=== PATIENT | female | born 1950 | race African-American/Black ===

== ENCOUNTER 2021-10-13 02:53 | Inpatient (IN) | payer OTHER ==
[~2021-10-13] VITALS: Ht 152.4 cm; Wt 77.2 kg
--- NOTE | ~2021-10-13 | EMS ---
[facility] [address] [place] [address] EMS Patient Care Report Name: NADER STODDARD Room #: 438-P [facility] IN M.R.#: [id number] Admission: 10/13/21 Attend Phys: Kelechi Jim MD Discharge: 10/17/21 Date of : 50 Report #: [id number] THIS REPORT FOR: //name// Report Transmitted: 10/28/2021 13:49 EMS Care Summary [place], [place]/[facility] Incident [id number] @ 10/13/2021 02:18 Incident Location [address] [place] [address] Patient NADER STODDARD Female, 71 Years [id number] Patient Address Patient History Seizures, Patient Medications Oxybutynin, ASA, Clopidogrel, Chief Complaint Constipation Disposition Transported No Lights/[place] Dispatch Reason Sick Person Transported To [facility] Narrative M42 arrived on scene to find the patient sitting upright on the stool. Patient said she had been constipated for the past 2-3 days. Patient said she had been possibly running a fever, cough, and having nausea plus vomiting for the past several days as well. Patient denied being around anyone with covid-19. Patient was moved to the cot and secured with seat belts. Patient denied shortness of breath or chest pain. Patient was having some nausea with vomiting during transport. En route to the hospital no changes in the patient condition occurred. M42 arrived on scene of the hospital and patient care was transferred [facility] [address] [place] [address] EMS Patient Care Report Name: NADER STODDARD Room #: 438-P [facility] IN M.R.#: [id number] Admission: 10/13/21 Attend Phys: Kelechi Jim MD Discharge: 10/17/21 Date of : 50 Report #: [id number] to the RN. Initial Vitals @02:37P: 88,R: 16,BP: 143/87,Pain: 0/10,GCS: 15,CO: 0,SpO2: 99,Revised Trauma: 12, @02:38P: 123,R: 16,BP: 132/77,Pain: 0/10,GCS: 15,SpO2: 99,Revised Trauma: 12, Assessments @02:27MENTAL:No Abnormalities,SKIN:No Abnormalities,HEENT:Head/Face: No Abnormalities,Eyes: No Abnormalities,Neck/Airway: No Abnormalities,LUNG SOUNDS:General: Vomiting,General: Nausea,Left Upper: No Abnormalities,Right Upper: No Abnormalities,Left Lower: No Abnormalities,Right Lower: No Abnormalities,ABDOMEN:General: Vomiting,General: Nausea,Left Upper: No Abnormalities,Right Upper: No Abnormalities,Left Lower: No Abnormalities,Right Lower: No Abnormalities,PELVIS//GI:No Abnormalities,EXTREMITIES:Left Arm: No Abnormalities,Right Arm: No Abnormalities,Left Leg: No Abnormalities,Right Leg: No Abnormalities,PULSE:NEURO:No Abnormalities,@02:39MENTAL:No Abnormalities,SKIN:No Abnormalities,HEENT:Head/Face: No Abnormalities,Eyes: No Abnormalities,Neck/Airway: No Abnormalities,LUNG SOUNDS:General: Nausea,General: Vomiting,Right Upper: No Abnormalities,Left Lower: No Abnormalities,Right Lower: No Abnormalities,ABDOMEN:General: Nausea,General: Vomiting,Right Upper: No Abnormalities,Left Lower: No Abnormalities,Right Lower: No Abnormalities,PELVIS//GI:No Abnormalities,EXTREMITIES:Left Arm: No Abnormalities,Right Arm: No Abnormalities,Left Leg: No Abnormalities,Right Leg: No Abnormalities,PULSE:NEURO:No Abnormalities, Impression Constipation Procedures @02:27 ALS Assessment Response: UnchangedSucceeded Timeline 02:17,Call Received 02:17,Dispatch Notified 02:18,Dispatched 02:19,En Route 02:25,On Scene 02:27,At Patient 02:27,ALS Assessment,Response: UnchangedSucceeded, 02:37,BP: 143/87 M,PULSE: 88,RR: 16 R,SPO2: 99 Ox,ETCO2: ,BG: ,PAIN: 0,GCS: 15, 02:38,BP: 132/77 M,PULSE: 123,RR: 16 R,SPO2: 99 Ox,ETCO2: ,BG: ,PAIN: 0,GCS: 15, 02:38,Depart Scene 02:56,At Destination [address] [address] EMS Patient Care Report Name: NADER STODDARD Room #: 438-P [facility] IN M.R.#: [id number] Admission: 10/13/21 Attend Phys: Kelechi Jim MD Discharge: 10/17/21 Date of : 50 Report #: [id number] 03:02,Call Closed Disclaimer v1.1 Copyright 2020 [employer] This EMS Care Summary contains data elements from the applicable legal record (which may be displayed differently). It is designed to provide pertinent information for the following purposes: continuity of care, clinical quality, and state data reporting. The complete legal record is available to ED staff and administrators of the receiving hospital in [employer]'s Patient Tracker. All data is provided "as is."
[2021-10-13 02:54] VITALS: BP 166/69
[2021-10-13] MEDS ORDERED: FLOMAX0.4 MG PO (03:11)
[2021-10-13] MEDS ORDERED: LEVO-T25 MCG PO (03:13)
[2021-10-13] MEDS ORDERED: SODIUM BICARBO650 M3 PO (03:13)
[2021-10-13] MEDS ORDERED: VAZALORE81 MG PO (03:13)
[2021-10-13] MEDS ORDERED: OXYBUTYNIN 5 MG5 M2 PO (03:14)
[2021-10-13] MEDS ORDERED: METFORMIN HCL500 M3 PO (03:14)
[2021-10-13] MEDS ORDERED: SERTRALINE HCL100 MG PO (03:15)
[2021-10-13] MEDS ORDERED: PLAVIX 75 MG TA75 MG PO (03:15)
[2021-10-13] MEDS ORDERED: LISINOPRIL20 MG PO (03:16)
[2021-10-13] MEDS ORDERED: CALCITRIOL0.25 MCG PO (03:17)
[2021-10-13 03:54] LABS: ABSOLUTE NEUTROPHILS 7.1 thou/uL (1.4-8.2); BASOPHILS 0.2 % (0.0-2.0); EOSINOPHILS 0.5 % (0.0-3.0); HEMATOCRIT 34.5 % (37.0-47.0); HEMOGLOBIN 11.2 gm/dL (12.0-15.0); MCH 28.9 pg (26.0-34.0); MCHC 32.4 g/dL (28.0-37.0); MCV 89.4 fL (80.0-100.0); MONOCYTES 2.1 % (1.0-8.0); PLATELET COUNT 263 thou/uL (150-400); POLYS 76.2 % (36.0-66.0); RBC 3.86 mil/uL (4.20-5.00); RDW 16.3 % (10.5-14.5); WBC 9.3 thou/uL (4.0-11.0)
[2021-10-13 04:03] LABS: CREATININE 2.3 mg/dL (0.6-1.0); POTASSIUM 4.3 mmol/L (3.5-5.1)
[2021-10-13 04:08] LABS: ALBUMIN 3.5 g/dL (3.4-5.0); TOTAL BILIRUBIN 0.4 mg/dL (0.2-1.0); TOTAL PROTEIN 7.4 g/dL (6.4-8.2)
[2021-10-13 05:44] LABS: URINE BILIRUBIN NEGATIVE (Negative); URINE BLOOD NEGATIVE (Negative); URINE CLARITY SL CLOUDY; URINE COLOR YELLOW; URINE GLUCOSE-RANDOM* NEGATIVE (Negative); URINE KETONES NEGATIVE (Negative); URINE LEUKOCYTES-REFLEX NEGATIVE (Negative); URINE NITRITE-REFLEX NEGATIVE (Negative); URINE PROTEIN (DIPSTICK) TRACE (Negative); URINE UROBILINOGEN 0.2 E.U./dl (0.2-1.0)
[2021-10-13 09:25] LABS: FOLIC ACID 11.3 ng/mL (8.6-58.9)
--- NOTE | 2021-10-13 13:30 | NUR ---
GAVE PATIENT A RECTAL ENEMA. PATIENT TOLERATED IT WELL.
[2021-10-13 19:09] VITALS: BP 155/50
[2021-10-13 20:02] VITALS: BP 165/86
[2021-10-14 00:06] LABS: GLYCOHEMOGLOBIN (HGB A1C) 7.6 % (4.8-5.6)
--- NOTE | 2021-10-14 02:09 | NUR ---
ADMITED TO ROOM 438 AROUND 1800 OF 10/13. CARE ASSUMED AT 1930. PATIENT IS RECEIVED IN BED, DROWSY AND A&O TO PERSON AND SITUATION. REORIENTED TO TIME AND PLACE. PATIENT IS ALSO ORIENTED TO ROOM AND UNIT. ADMISSION PACKET PROVIDED, BUT CONSENTS HAVE NOT BEEN SIGNED DUE TO VISION ISSUES. LEFT HAND PERIPHERAL IV HAS NO S/S OF INFECTION OR INFILTRATION. NS RUNNING AT 100CC/HR. VALDEZ IN PLACE, DRAINNING YELLOW URINE. PATIENT DENIED PAIN AT ASSESSMENT. HYPOACTIVE BOWEL SOUNDS PRESENT IN ALL 4Q, DENIES NAUSEA. GOLYTELY AT BEDSIDE, AND INTAKE IS ENCOURAGED. PATIENT TOLERATED ORAL MEDS WHOLE WITH THIN LIQUIDS. PATIENT HAS BEEN IMPULSIVE AND CONFUSED INTERMITTENTLY. BED ALARM ON, FALL PRECAUTIONS IN PLACE. CALL LIGHT WITHIN REACH, WILL CONTINUE TO MONITOR.
[2021-10-14 03:43] VITALS: BP 156/59
[2021-10-14 05:39] LABS: ABSOLUTE NEUTROPHILS 9.3 thou/uL (1.4-8.2); BASOPHILS 0.1 % (0.0-2.0); HEMATOCRIT 28.5 % (37.0-47.0); HEMOGLOBIN 9.5 gm/dL (12.0-15.0); LYMPHOCYTES 7.5 % (24.0-44.0); MCH 29.4 pg (26.0-34.0); MCHC 33.5 g/dL (28.0-37.0); MCV 87.7 fL (80.0-100.0); MONOCYTES 6.8 % (1.0-8.0); PLATELET COUNT 217 thou/uL (150-400); POLYS 85.6 % (36.0-66.0); RBC 3.25 mil/uL (4.20-5.00); WBC 10.8 thou/uL (4.0-11.0)
[2021-10-14 06:18] LABS: CALCIUM 7.9 mg/dL (8.5-10.1); CREATININE 1.7 mg/dL (0.6-1.0); MAGNESIUM 1.7 mg/dL (1.8-2.4); POTASSIUM 3.7 mmol/L (3.5-5.1)
[2021-10-14 07:36] VITALS: BP 149/76
--- NOTE | 2021-10-14 13:28 | NUR ---
ASSUMED PT CARE THIS AM. GIVEN GOLYTELY AND LACTULOSE PER DR AND IT TELECOM TECHNICIAN ORDERED. INFORMED PT IS HAVING LOOSE, LIQUID STOOLS. CHANGED WHOLE BED MULTIPLE TIMES. NO C/O OF PAIN PER PT. PT HAS TELE MONITOR ON. PT IS ACCUCHECK ACHS AND HAS VALDEZ CATH IN PLACE. PHYSICAL THERAPY AND OCCUPATIONAL THERAPY WAS WORKING WITH PT THIS AM. PER PT SHE SAID SHE IS A WHEELCHAIR BOUND. WILL CONTINUE TO MONITOR PT. FOLLOW POC.
--- NOTE | 2021-10-14 14:36 | NUR ---
71-year-old female with past medical history known for CVA, hypertension, hypothyroidism, diabetes, hyperlipidemia. [facility] ED with abdominal pain. Patient also reports constipation, nausea, vomiting however she had liquid stool prior to coming to the hospital. ER work-up revealed CT abdomen revealed severe constipation with severe rectal impaction, rectum is markedly distended . Going for KUB today Chart review. Cm visited with Sera, A & o x 3, and able to make her needs know. Intro to cm and dcp. She lives at home with her son deangelo # [phone]. 10 steps to the basement with handrails. Independent, no longer drives. Deangelo will drive her to appointments and run errands if needed. She has a walker that she uses. Has not had any home health since she moved here from [place]. Discussed during los with the attending physician, dc home when she has bm. Possible today or dc home over the weekend. Deangelo will be able to transport her home per Sera. Will cont. following as if needs arise.
[2021-10-14 16:20] VITALS: BP 151/64
[2021-10-14 19:20] VITALS: BP 135/47
[2021-10-14 19:30] VITALS: BP 135/47
--- NOTE | 2021-10-15 04:31 | NUR ---
ASSUMED CARE AT 1900, PT SEATED ON THE RECLINER, TEQUESTED TO BE ASSISTED IN BED, CALL LIGHT AND BELONGINGS IN CLOSE PROXIMITY, COMPLIANT TO TX, NO ADVERSE REACTION, IV ESTABLISHED ON THE LEFT WRIST, PT TOLARETED THE PROCEDURE WELL, PT CONTINUES WITH BOWEL REGIME, EFFECTIVE, HAD MULTIPLE MODERATE LOOSE STOOLS, SLEPT INTERMITTENTLY WITH CHECK, CHANGING AND TOILETING NEEDED COMPLETED.
[2021-10-15 04:38] VITALS: BP 143/74
[2021-10-15 08:23] VITALS: BP 152/74
--- NOTE | 2021-10-15 09:45 | NUR ---
ASSUMED CARE AT 0700. PATIENT IS ALERT AND ORIENTED X2, WITH SOME CONFUSION. PATIENT IS BLIND. LUNGS ARE CLEAR AND DEMINISHED. PATIENT HAS IV IN HER LEFT WRIST. NS INFUSING AT 80 CC/HR. IV SITE WITHOUT REDNESS OR SWELLING. PATIENT IS UP WITH ASSIST OF 1 STAFF AND GAIT BELT TO [facility]. PATIENT HAS VALDEZ TO DD, DRAINING ADI COLORED URINE. PATIENT CONTINUES ON BOWEL PREP, MIRALAX IN H20. FALL AND SAFETY PROTOCOLS IN PLACE. DENIES PAIN AT THIS TIME. CONTINUES TO PROGRESS SLOWLY TOWARDS D/C GOALS. WILL CONTINUE TO MONITER.
[2021-10-15 15:45] VITALS: BP 150/66
[2021-10-15 20:53] VITALS: BP 133/47
--- NOTE | 2021-10-16 04:34 | NUR ---
ASSUMED CARE AT 1900, PT LAYING COMFORTABLY IN BED WITH CALL LIGHT AND PERSONAL BELONGINGS WITHIN REACH, REPORTS NO PAIN OR DISCOMFORT, TALARATED TX WELL NO ADVERSE REACTION NOTED, ICE WATER ON BED SIDE TABLE, SLEPT THROUGH THE NIGHT, WILL CONTINUE TO MONITOR.
[2021-10-16 07:31] VITALS: BP 140/41
[2021-10-16 15:42] VITALS: BP 156/49
--- NOTE | 2021-10-16 16:40 | NUR ---
PT PROGRESSING TOWARD GOALS. NO C/O ABD PAIN. LIQUID STOOL COVERING BOTTOM OF COMMODE. EATING AND DRINKING W/O C/O DISCOMFORT AND IS PASSING FLATUS. UP IN THE CHAIR FOR SEVERAL HOURS.
[2021-10-16 20:40] VITALS: BP 172/55
[2021-10-17 04:15] VITALS: BP 157/59
--- NOTE | 2021-10-17 04:57 | NUR ---
PT LYING IN BED. DENIES PAIN. DENIES NAUSEA. RESTING COMFORTABLY. NO NEEDS VOICED. CALL LIGHT WITHIN REACH. FREQUENT OBSERVATION.
[2021-10-17 05:23] LABS: HEMATOCRIT 26.9 % (37.0-47.0); HEMOGLOBIN 8.9 gm/dL (12.0-15.0); MCHC 33.2 g/dL (28.0-37.0); MCV 87.3 fL (80.0-100.0); RBC 3.08 mil/uL (4.20-5.00); RDW 15.7 % (10.5-14.5); WBC 6.5 thou/uL (4.0-11.0)
[2021-10-17 05:26] LABS: CALCIUM 7.5 mg/dL (8.5-10.1); CREATININE 1.4 mg/dL (0.6-1.0); POTASSIUM 3.2 mmol/L (3.5-5.1)
--- NOTE | 2021-10-17 08:44 | NUR ---
A/O X 4. ROOM AIR. ONE ASSIST WITH WALKER. BILATERAL EYES ARE BLIND BUT SEES SHADOWS. LEDT WRIST IV SALINE LOCKED. AC HS ACCU CHECKS, 155 AT BREAKFAST, 3 UNITS LISPRO GIVEN SUBQ LLQ. SR ON TELE. VALDEZ IN PLACE-YELLOW URINE. INCONT ON STOOL- LOOSE STOOLS. HEPARIN DVT PPX. NO PAIN.
--- NOTE | 2021-10-17 11:13 | NUR ---
Discussed during los with the attending physician. Dc home today with home health. Mohinder visited with Sera, Education on home health and referral sent to [facility] per Srea request. Tried to reach her son david, is not a working number.
[2021-10-17 11:15] VITALS: BP 157/59
[2021-10-17] MEDS ORDERED: MIRALAX119 GM PO (14:07)
== END 2021-10-17 14:51 | disposition home health service (06) | DRG 388 ==
LOC: ER 02:53 → EROBS 06:26 → 4S 06:26
PROVIDERS: Emergency Medicine; Nurse Practitioner; ADMIT Hospitalist; ATTEND Hospitalist
DX: K56.41 Fecal impaction (principal); N17.0 Acute kidney failure with tubular necrosis; N18.9 Chronic kidney disease, unspecified; Z20.822 Contact with and (suspected) exposure to COVID-19; E03.9 Hypothyroidism, unspecified; E78.5 Hyperlipidemia, unspecified; E11.65 Type 2 diabetes mellitus with hyperglycemia; E86.0 Dehydration; R53.81 Other malaise; R63.4 Abnormal weight loss; E11.22 Type 2 diabetes mellitus with diabetic chronic kidney disease; I12.9 Hypertensive chronic kidney disease with stage 1 through stage 4 chronic kidney disease, or unspecified chronic kidney disease; R33.9 Retention of urine, unspecified; Z86.73 Personal history of transient ischemic attack (TIA), and cerebral infarction without residual deficits; Z68.33 Body mass index [BMI] 33.0-33.9, adult; Z79.82 Long term (current) use of aspirin; Z79.899 Other long term (current) drug therapy; Z28.21 Immunization not carried out because of patient refusal
CPT/HCPCS: 10100

== ENCOUNTER 2021-11-25 20:08 | Inpatient (IN) | payer MEDICARE ==
[~2021-11-25] VITALS: Ht 167.6 cm; Wt 71.4 kg
--- NOTE | ~2021-11-25 | EMS ---
[address] [address] EMS Patient Care Report Name: NADER STODDARD Room #: 438-P [facility] IN M.R.#: [id number] Admission: 11/25/21 Attend Phys: Wendy Shaffer MD Discharge: 11/28/21 Date of : 50 Report #: [id number] THIS REPORT FOR: //name// Report Transmitted: 11/29/2021 10:29 EMS Care Summary [place], [place]/[facility] Incident [id number] @ 11/25/2021 19:29 Incident Location [address] [place] [address] Patient NADER STODDARD Female, 71 Years 1950 Patient Address [address] [place] [address] Patient History Seizures, Patient Allergies No known allergies, Patient Medications Clopidogrel, ASA, Oxybutynin, Chief Complaint ABDOMINAL PAIN Disposition Transported No Lights/[place] Dispatch Reason Abdominal Pain/Problems Transported To [facility] Narrative M528 ARRIVES TO FIND 71 Y/O F PT COMPLAINING OF ABDOMINAL PAIN AND WEAKNESS FOR THE LAST FOUR DAYS. ASSESSMENTS AND TREATMENTS NOTED. PT MOVED TO COT VIA [id number]. PT MOVED TO AMBULANCE. PT TRANSPORTED. [address] [address] EMS Patient Care Report Name: NADER STODDARD Room #: 438-P [facility] IN M.R.#: [id number] Admission: 11/25/21 Attend Phys: Wendy Shaffer MD Discharge: 11/28/21 Date of : 50 Report #: [id number] M528 ARRIVES AT DESTINATION. PT MOVED TO ROOM IN ED. PT MOVED TO BED IN ROOM VIA DRAWSHEET METHOD. PT CARE TRANSFERRED. M528 RETURNS TO SERVICE. Initial Vitals @19:53P: 77,BP: 87/48,SpO2: 99, @19:44P: 84,R: 18,BP: 110/68,Pain: 8/10,GCS: 15,Glucose: 108,SpO2: 99,Revised Trauma: 12, Assessments @19:38MENTAL:Event Oriented,Time Oriented,Person Oriented,Place Oriented,SKIN:HEENT:LUNG SOUNDS:Right Lower: Tenderness,Left Lower: Tenderness,ABDOMEN:Right Lower: Tenderness,Left Lower: Tenderness,PELVIS//GI:EXTREMITIES:PULSE:NEURO:@19:48MENTAL:No Abnormalities,SKIN:No Abnormalities,HEENT:Head/Face: No Abnormalities,Eyes: No Abnormalities,Neck/Airway: No Abnormalities,LUNG SOUNDS:Right Lower: Tenderness,Left Lower: Tenderness,General: No Abnormalities,Left Upper: No Abnormalities,Right Upper: No Abnormalities,ABDOMEN:Right Lower: Tenderness,Left Lower: Tenderness,General: No Abnormalities,Left Upper: No Abnormalities,Right Upper: No Abnormalities,PELVIS//GI:No Abnormalities,EXTREMITIES:Left Arm: No Abnormalities,Right Arm: No Abnormalities,Left Leg: No Abnormalities,Right Leg: No Abnormalities,PULSE:NEURO:No Abnormalities, Impression Abdominal Pain Procedures @19:38 ALS Assessment Response: UnchangedSucceeded @19:40 3-Lead ECGSucceeded @19:52 IV Therapy - Saline Lock 0cc (20 ga) Site: Hand-Right Response: UnchangedFailed Timeline 19:27,Call Received 19:27,Dispatch Notified 19:29,Dispatched 19:30,En Route 19:36,On Scene 19:38,At Patient 19:38,ALS Assessment,Response: UnchangedSucceeded, 19:40,3-Lead ECG,Succeeded, 19:44,BP: 110/68 M,PULSE: 84,RR: 18 R,SPO2: 99 Ox,ETCO2: ,B,PAIN: 8,GCS: 15, 19:52,IV Therapy - Saline Lock 0cc 20 ga Site: Hand-Right,Response: UnchangedFailed, [facility] [address] [place] [address] EMS Patient Care Report Name: NADER STODDARD Room #: 438-P [facility] IN M.R.#: [id number] Admission: 11/25/21 Attend Phys: Wendy Shaffer MD Discharge: 11/28/21 Date of : 50 Report #: [id number] 19:52,Depart Scene 19:53,BP: 87/48 M,PULSE: 77,RR: R,SPO2: 99 Ox,ETCO2: ,BG: ,PAIN: ,GCS: , 20:02,At Destination 20:10,Call Closed Disclaimer v1.1 Copyright 2022 [employer] This EMS Care Summary contains data elements from the applicable legal record (which may be displayed differently). It is designed to provide pertinent information for the following purposes: continuity of care, clinical quality, and state data reporting. The complete legal record is available to ED staff and administrators of the receiving hospital in [employer]'s Patient Tracker. All data is provided "as is."
[~2021-11-25 20:08] MED LIST: CALCITRIOL0.25 MCG PO; FLOMAX0.4 MG PO; LEVO-T25 MCG PO; LISINOPRIL20 MG PO; METFORMIN HCL500 M3 PO; MIRALAX119 GM PO; OXYBUTYNIN 5 MG5 M2 PO; PLAVIX 75 MG TA75 MG PO; SERTRALINE HCL100 MG PO; SODIUM BICARBO650 M3 PO; VAZALORE81 MG PO
[2021-11-25 20:10] VITALS: BP 84/46
[2021-11-25 20:41] LABS: ABSOLUTE NEUTROPHILS 4.8 thou/uL (1.4-8.2); BASOPHILS 0.5 % (0.0-2.0); EOSINOPHILS 0.6 % (0.0-3.0); HEMATOCRIT 29.6 % (37.0-47.0); HEMOGLOBIN 9.5 gm/dL (12.0-15.0); MCH 28.4 pg (26.0-34.0); MCHC 32.1 g/dL (28.0-37.0); MCV 88.4 fL (80.0-100.0); MONOCYTES 8.6 % (1.0-8.0); PLATELET COUNT 229 thou/uL (150-400); POLYS 70.3 % (36.0-66.0); RBC 3.34 mil/uL (4.20-5.00); WBC 6.9 thou/uL (4.0-11.0)
[2021-11-25 20:46] LABS: CALCIUM 8.9 mg/dL (8.5-10.1); CREATININE 2.6 mg/dL (0.6-1.0); POTASSIUM 4.2 mmol/L (3.5-5.1)
[2021-11-25] MEDS ORDERED: ATORVASTATIN CA80 MG PO (20:52)
[2021-11-25] MEDS ORDERED: AMLODIPINE BESY10 MG PO (20:53)
[2021-11-25 20:55] LABS: ALBUMIN 3.1 g/dL (3.4-5.0); TOTAL BILIRUBIN 0.4 mg/dL (0.2-1.0); TOTAL PROTEIN 6.6 g/dL (6.4-8.2)
[2021-11-25 22:36] LABS: URINE BILIRUBIN NEGATIVE (Negative); URINE BLOOD NEGATIVE (Negative); URINE CLARITY CLEAR; URINE COLOR YELLOW; URINE GLUCOSE-RANDOM* NEGATIVE (Negative); URINE KETONES TRACE (Negative); URINE LEUKOCYTES-REFLEX NEGATIVE (Negative); URINE NITRITE-REFLEX NEGATIVE (Negative); URINE PROTEIN (DIPSTICK) 1+ (Negative); URINE UROBILINOGEN 0.2 E.U./dl (0.2-1.0)
[2021-11-25 23:06] LABS: BACTERIA-REFLEX None Seen /HPF (None Seen); CASTS None Seen /LPF (None Seen); CRYSTALS None Seen /LPF (None Seen); MUCUS None Seen strn/LPF (None Seen); SQUAMOUS 0-3 Few /LPF (0-3); URINE RBC None Seen /HPF (NONE SEEN); URINE WBC-REFLEX None Seen /HPF (0-5)
[2021-11-25 23:07] LABS: AMORPHOUS URATES Few /LPF (None Seen)
[2021-11-26 06:09] LABS: HEMATOCRIT 26.2 % (37.0-47.0); HEMOGLOBIN 8.4 gm/dL (12.0-15.0); MCH 28.7 pg (26.0-34.0); MCHC 32.1 g/dL (28.0-37.0); MCV 89.2 fL (80.0-100.0); RBC 2.93 mil/uL (4.20-5.00); WBC 6.9 thou/uL (4.0-11.0)
[2021-11-26 06:27] LABS: CALCIUM 8.1 mg/dL (8.5-10.1); CREATININE 2.1 mg/dL (0.6-1.0); POTASSIUM 3.8 mmol/L (3.5-5.1)
[2021-11-26 06:41] LABS: CHOLESTEROL 210 mg/dL (<200); HDL CHOLESTEROL 46 mg/dL (>40); LDL CHOLESTEROL 142 mg/dL (<100); TC:HDL 4.6 Ratio (Not establshd); TRIGLYCERIDE 111 mg/dL (<150); VLDL 22 mg/dL (<40)
[2021-11-26 06:56] LABS: % SATURATION 15 % (20-39); IRON 28 ug/dL (50-170); TIBC 185 ug/dL (250-450)
--- NOTE | 2021-11-26 09:41 | EKG ---
[address] [address] ELECTROCARDIOGRAM REPORT Name: NADER STODDARD Room #: 170-3 ADM IN M.R.#: [id number] Admission: 11/25/21 Attend Phys: Wendy Shaffer MD Discharge: Date of : 50 Report #: [id number] [facility] ED Test Date: 2021-11-25 Test Time: 20:23:44 Pat Name: NADER STODDARD Department: Room: 170 Gender: F Rolls Baker: MPARK : 1950 Requested By: Kenzie Macdonald Order Number: [id number] : Dylan Eduardo Measurements Intervals [place] Rate: 74 P: 81 [place]: 158 QRS: 54 QRSD: 85 T: 33 QT: 381 QTc: 423 Interpretive Statements Sinus rhythm No previous ECG available for comparison Electronically Signed On 11-26-2021 9:40:45 PSYCHOLOGICAL OPERATIONS SPECIALIST by Dylan Eduardo [email or web address] <ELECTRONICALLY SIGNED> By: Dylan Eduardo MD, [facility] 11/26/21 0940 22 22 Dylan Eduardo MD, FACC /EPI
[2021-11-26 17:04] VITALS: BP 139/69
[2021-11-26 17:51] VITALS: BP 144/55
[2021-11-26 18:27] VITALS: BP 149/59
--- NOTE | 2021-11-27 05:22 | NUR ---
PT LYING IN BED. DENIES PAIN. DENIES NAUSEA. RESTING COMFORTABLY. NO NEEDS VOICED. CALL LIGHT WITHIN REACH. FREQUENT OBSERVATION.
[2021-11-27 07:38] VITALS: BP 154/75
--- NOTE | 2021-11-27 08:52 | NUR ---
ASSUMED CARE OF PT AT 0700 THIS MORNING. PT IS A/OX4, WITH NO COMPLAINTSD AT THIS TIME. ASSESSMENTS NOTED IN CHART AND OTHERWISE UNREMARKABLE. FALL PRECAUTIONS IN PLACE DUE TO WEAKNESS. CALL LIGHT AND OTHER NEEDS IN REACH. MEDS AND TX GIVEN NEEDED AND SCHEDULED. WILL CONTINUE TO MONITOR AND NOTE ANY CHANGES.
[2021-11-27 11:43] VITALS: BP 143/67
[2021-11-27 16:12] LABS: CALCIUM 8.4 mg/dL (8.5-10.1); CREATININE 1.4 mg/dL (0.6-1.0)
[2021-11-27 17:13] VITALS: BP 146/76
[2021-11-27 19:27] VITALS: BP 144/74
[2021-11-28 04:21] VITALS: BP 145/77
[2021-11-28 06:24] LABS: CALCIUM 8.8 mg/dL (8.5-10.1); CREATININE 1.4 mg/dL (0.6-1.0); POTASSIUM 3.8 mmol/L (3.5-5.1)
[2021-11-28 08:22] VITALS: BP 156/86
--- NOTE | 2021-11-28 08:57 | NUR ---
PT LYING IN BED. PURE WICK IN PLACE. DENIES NAUSEA. DENIES PAIN. RESTING COMFORTABLY. NO NEEDS VOICED. CALL LIGHT WITHIN REACH. FREQUENT OBSERVATION.
[2021-11-28 09:09] VITALS: BP 156/86
--- NOTE | 2021-11-28 14:30 | NUR ---
Patient to dc home today. She admits with abd pain. Patient lives with family in home. She no longer drives, family assists. She uses a walker at home and community. Patient has rec [facility] in past. plan dc with HH care. [facility] rec orders for start of care. no further needs.
== END 2021-11-28 13:49 | disposition home health service (06) | DRG 388 ==
LOC: ER 20:08 → EROBS 23:08 → 4S 23:08
PROVIDERS: Nurse Practitioner Family; Physician Assistant; ADMIT Internal Medicine; ATTEND Internal Medicine
DX: K56.49 Other impaction of intestine (principal); N17.0 Acute kidney failure with tubular necrosis; K29.70 Gastritis, unspecified, without bleeding; N18.9 Chronic kidney disease, unspecified; K59.00 Constipation, unspecified; Z20.822 Contact with and (suspected) exposure to COVID-19; E11.22 Type 2 diabetes mellitus with diabetic chronic kidney disease; I12.9 Hypertensive chronic kidney disease with stage 1 through stage 4 chronic kidney disease, or unspecified chronic kidney disease; I95.9 Hypotension, unspecified; E03.9 Hypothyroidism, unspecified; E78.5 Hyperlipidemia, unspecified; M19.90 Unspecified osteoarthritis, unspecified site; F32.9 Major depressive disorder, single episode, unspecified; K21.9 Gastro-esophageal reflux disease without esophagitis; N32.81 Overactive bladder; R53.81 Other malaise; H54.8 Legal blindness, as defined in USA; D64.9 Anemia, unspecified; R63.4 Abnormal weight loss; Z68.25 Body mass index [BMI] 25.0-25.9, adult; Z86.73 Personal history of transient ischemic attack (TIA), and cerebral infarction without residual deficits
CPT/HCPCS: 10100; 10195